=== PATIENT | female | born 1990 | race African-American/Black ===

== ENCOUNTER 2018-03-22 15:29 | Emergency (ER) | payer SELFPAY ==
[~2018-03-22] VITALS: Ht 152.4 cm; Wt 55.0 kg
[2018-03-22] MEDS ORDERED: FAMOTIDINE 20MG TABLET PO ONE (19:15)
[2018-03-22] MEDS ORDERED: DIPHENHYDRAMINE 50MG/ML VIAL IV ONE (19:15)
[2018-03-22] MEDS ORDERED: DIPHENHYDRAMINE 50MG/ML VIAL IM ONE (19:30)
[2018-03-22 20:12] VITALS: BP 119/75
== END 2018-03-22 20:33 | disposition home or self-care (01) ==
LOC: ER 15:29
DX: R21 Rash and other nonspecific skin eruption (principal)
CPT/HCPCS: 96374; 99284; J1200